=== PATIENT | male | born 2000 | race Caucasian/White ===

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

== ENCOUNTER 2018-04-22 11:30 | Emergency (ER) | payer MEDICAID, BC ==
[2018-04-22] MEDS: IBUPROFEN 600 MG TAB PO (12:43)
[2018-04-22] MEDS: LIDOCAINE 1% (MDV) 20 ML INJ SC (12:49)
== END 2018-04-22 15:35 | disposition home or self-care (01) ==
LOC: FTE 11:30
DX: L60.0 Ingrowing nail (principal)
CPT/HCPCS: 11765; 99283-25

== ENCOUNTER 2018-10-03 11:38 | Emergency (ER) | payer BC, MEDICAID ==
[2018-10-03] MEDS: LIDOCAINE 1% (MPF) 5 ML VIAL INJ (12:51)
== END 2018-10-03 14:23 | disposition home or self-care (01) ==
LOC: FTE 11:38
DX: L60.0 Ingrowing nail (principal)
CPT/HCPCS: 11765; 99283-25